=== PATIENT | female | born 1990 | race Caucasian/White ===

== ENCOUNTER 2018-12-01 09:31 | Inpatient (IN) ==
[2018-12-01] MEDS ORDERED: OXYTOCIN 30 UNITS/500 ML BAG IV PRN (09:56)
--- NOTE | 2018-12-01 10:15 | History & Physical Report ---
Date of Service December 01, 2018 Assessment & Plan (1) Post-dates : 28 yo at 40.5 ks, IOL VSS Afebrile GBS negative Cervix unfavorable Plan admit, monitor, labs, PO Cytotec All questions were answered History of Present Illness Chief Complaint: Induction Primary Care Provider: Efe Garcia MD Patient is a 28 yo at 40.5wks, scheduled IOL for postdates No complaints No ctxs/ LOF/VB +FM Her has been uncomplicated GBS negative Allergies Allergy/AdvReac Type Severity Reaction Status Date / Time No Known Allergies Allergy Unverified 12/30/11 11:17 Home Medications Home Medications Medication Instructions Recorded Confirmed Type Cephalexin Monohydrate (Keflex) 500 mg PO QID #0 03/20/07 History Hydrocodone/Acetaminophen 1 tab PO Q4HR PRN #0 03/20/07 History 5MG/500MG (Vicodin 5MG/500MG) Ibuprofen (Advil) 400 mg PO #0 03/20/07 History OXYCODONE/ACETAMINOPHEN 5MG/325MG 1 tab PO Q6HR PRN #20 05/24/08 Rx (PERCOCET 5MG/325MG) Patient History [employer] History no h/o STD's, no GC/ Chlamydia/ HSV Review of Systems All systems reviewed & are unremarkable except as noted in HPI & below Physical Exam Constitutional: WD/WN, vitals as above well nourished Comfortable Genitourinary: Cervix 1 cm/ 50%/ -2, vertex Monitoring External Monitor 130's, not reactive yet, no decels, moderate variability Tocodynamometer No ctxs
[2018-12-01 10:35] LABS: Hematocrit (blood only) 32.8 % (37-47); Mean Platelet Volume 9.6 fL (7.4-10.4); Platelet Count 225 K/uL (130-400); RDW Coefficient of Variation 13.4 % (11.5-14.5); RDW Standard Deviation 40.9 fL (36.4-46.3); Red Blood Count 3.95 M/uL (4.2-5.4); White Blood Count 10.32 K/uL (4.8-10.8)
[2018-12-01 10:36] LABS: Mean Corpuscular Hgb Conc 36.6 g/dL (32-36)
[2018-12-01] MEDS: miSOPROStol 50 MCG TAB PO SCH ×2 (11:04→15:07)
[2018-12-01] MEDS ORDERED: BUTORPHANOL TARTRATE 2 MG/ML VIAL IV PRN (16:30)
--- NOTE | 2018-12-01 16:30 | Obstetrical Progress Note ---
Date of Service December 01, 2018 Subjective Patient is reevaluated She received 2 doses of PO Cytotec She feels mild cramps q 20 min No LOF/VB +FM's FHR categ I Continue to monitor and cervical ripening Results & Data Vital Signs (Past 12 Hours) Vital Signs Temp Pulse Resp BP 12/01/18 15:02 36.9 C 80 20 107/64 12/01/18 12:52 36.9 C 86 20 130/74 12/01/18 10:30 36.8 C 86 18 123/71 12/01/18 10:29 86 123/71
[2018-12-01] MEDS ORDERED: ONDANSETRON INJ 2 MG/ML 2 ML VIAL IV PRN (23:24)
--- NOTE | 2018-12-01 23:24 | Obstetrical Progress Note ---
Date of Service December 01, 2018 Subjective Patient is reevaluated She received 2 doses of PO Cytotec She has been feeling ctxs q 2-3 min and for the last 4 hours, they are getting painful VSS Afebrile VE; 2/ 70%/ -2, tight bulging bag FHR categ I Breaks: ctxs q 2-3 min Patient desires to eat Plan to feed her before active labor starts and continue to monitor PO Cytotec if ctxs would space out Continue to monitor Results & Data Vital Signs (Past 12 Hours) Vital Signs Temp Pulse Resp BP 12/01/18 23:02 36.4 C L 75 18 131/80 12/01/18 19:01 36.7 C 79 18 118/77 12/01/18 15:02 36.9 C 80 20 107/64 12/01/18 12:52 36.9 C 86 20 130/74
[2018-12-02] MEDS: miSOPROStol 50 MCG TAB PO SCH (02:29)
--- NOTE | 2018-12-02 08:13 | Labor Progress Brief Note ---
Date of Service December 02, 2018 Met pt and spouse doing well Induction Day #2 for prolonged gestation Cytotec X3 FHR; CAT1 ctx: 2-5min VE: 3-4/50/-1 w/ bulging membranes Results & Data Vital Signs (Past 12 Hours) Vital Signs Temp Pulse Resp BP 12/02/18 07:28 36.6 C 74 20 128/81 12/02/18 02:29 36.8 C 80 18 138/80 12/01/18 23:02 36.4 C L 75 18 131/80
[2018-12-02] MEDS: LACTATED RINGER'S 1,000 ML IV PRN ×2 (08:59→13:06)
[2018-12-02] MEDS ORDERED: BUPIVACAINE 0.25% 30 ML VIAL ONE (10:46)
[2018-12-02] MEDS ORDERED: fentaNYL citrate 100 MCG/2 ML VIAL ONE (10:46)
[2018-12-02] MEDS ORDERED: ePHEDrine sulfate 50 MG/ML AMP ONE (10:46)
[2018-12-02] MEDS ORDERED: fentaNYL 2MCG/ML ROPIV 1.25MG/ML 100 ML BAG EPI ONE (10:47)
--- NOTE | 2018-12-02 11:11 | Anesthesiology Consultation ---
Date of Service December 02, 2018 Assessment & Plan (1) Encounter for pre-operative examination: Chart Review Chart Review: Acceptable Risk for Labor Epidural History Height/Weight Height: 5 ft 6 in Weight: 105.687 kg Allergies Allergy/AdvReac Type Severity Reaction Status Date / Time No Known Allergies Allergy Unverified 12/30/11 11:17 Medications Active Medications Generic Name Dose Route Start Last Admin Trade Name Freq PRN Reason Stop Dose Admin Butorphanol Tartrate 1 mg 12/01/18 16:30 12/02/18 09:04 Stadol IV 12/31/18 16:29 1 mg Q3HWA PRN Administration Pain Lactated Ringer's 1,000 mls @ 150 mls/hr 12/01/18 09:56 12/02/18 08:59 Lr IV 12/03/18 09:55 150 mls/hr .Q6H40M PRN Administration L&D Protocol Protocol Misoprostol 50 mcg 12/01/18 12:00 12/02/18 02:29 Cytotec PO 12/31/18 11:59 50 mcg Q4 LETITIA Administration Past Medical History Medical History Biceps tendonosis of right shoulder Carpal tunnel syndrome GERD (gastroesophageal reflux disease) [place] teeth extracted Social History Smoking Status: Never smoker Do You Dip or Chew Tobacco: No Hx Alcohol Use: No Hx Substance Use: No substance use type: does not use Physical Exam Vital Signs Last Vital Signs Temp 37.1 C 12/02/18 09:08 Pulse 73 12/02/18 11:06 Resp 20 12/02/18 09:08 BP 128/89 12/02/18 10:57 Pulse Ox 100 12/02/18 11:06
[2018-12-02] MEDS ORDERED: ePHEDrine sulfate 50 MG/ML AMP IV PRN (12:40)
[2018-12-02] MEDS ORDERED: NALOXONE HCL 0.4 MG/1 ML VIAL/CARP IV PRN (12:40)
[2018-12-02] MEDS ORDERED: NALBUPHINE HCL INJ 10 MG/ML AMP IV PRN (12:40)
[2018-12-02] MEDS ORDERED: ONDANSETRON INJ 2 MG/ML 2 ML VIAL IV PRN (12:40)
[2018-12-02] MEDS ORDERED: NALOXONE HCL 1 MG in SODIUM CHLORIDE 0.9% 1000ML 1,000 ML IV PRN (12:40)
[2018-12-02] MEDS ORDERED: fentaNYL 2MCG/ML ROPIV 1.25MG/ML 100 ML BAG EPI PRN (12:40)
[2018-12-02] MEDS ORDERED: DiphenhydrAMINE HCL 50 MG/ML VIAL IV PRN (12:40)
--- NOTE | 2018-12-02 12:45 | Labor Progress Brief Note ---
Date of Service December 02, 2018 Pt doing well Epidural analgesia in place FHR; CAT1 Ctx 2-5mins VE; 5cm/75%/bulging membranes/-1 AROM- clear anticipate VD Results & Data Vital Signs (Past 12 Hours) Vital Signs Temp Pulse Resp BP Pulse Ox 12/02/18 12:41 100 H 98 12/02/18 12:36 80 97 12/02/18 12:31 83 98 12/02/18 12:29 93 H 119/69 12/02/18 12:26 87 99 12/02/18 12:23 96 H 119/74 12/02/18 12:21 87 97 12/02/18 12:20 22 12/02/18 12:18 90 121/77 12/02/18 12:16 93 H 98 12/02/18 12:13 89 129/79 12/02/18 12:11 99 H 99 12/02/18 12:08 94 H 127/68 12/02/18 12:06 92 H 98 12/02/18 12:05 83 18 127/60 12/02/18 12:01 86 97 12/02/18 11:59 85 128/79 12/02/18 11:56 98 H 97 12/02/18 11:52 93 H 133/78 12/02/18 11:51 95 H 98 12/02/18 11:50 94 H 18 125/82 12/02/18 11:48 100 H 125/81 12/02/18 11:46 81 119/75 97 12/02/18 11:45 18 12/02/18 11:44 81 127/86 12/02/18 11:42 89 129/90 12/02/18 11:41 89 98 12/02/18 11:40 82 20 123/81 12/02/18 11:38 88 126/90 12/02/18 11:36 86 129/93 98 12/02/18 11:34 77 130/87 12/02/18 11:32 84 91 12/02/18 11:31 79 98 12/02/18 11:26 84 94 12/02/18 11:21 82 100 12/02/18 11:16 95 H 100 12/02/18 11:11 74 100 12/02/18 11:06 73 100 12/02/18 11:01 72 100 12/02/18 11:00 36.8 C 71 22 128/89 100 12/02/18 10:57 71 128/89 12/02/18 10:56 70 100 12/02/18 09:08 37.1 C 75 20 129/77 12/02/18 07:28 36.6 C 74 20 128/81 12/02/18 02:29 36.8 C 80 18 138/80
[2018-12-02] MEDS ORDERED: OXYTOCIN 20 UNITS in LACTATED RINGER'S 1,000 ML IV SCH ×2 (13:30→20:45)
[2018-12-02] MEDS ORDERED: OXYTOCIN 30 UNITS/500 ML BAG IV PRN ×2 (13:47→21:33)
[2018-12-02] MEDS ORDERED: CALCIUM CARBONATE 500 MG CHEWABLE TAB PO ONE (16:04)
--- NOTE | 2018-12-02 16:06 | Labor Progress Brief Note ---
Date of Service December 02, 2018 doing well AROM FHR : CAT1 Ctx 2-5 Pit; 6Mu VE; 5/75%/-1 Results & Data Vital Signs (Past 12 Hours) Vital Signs Temp Pulse Resp BP Pulse Ox 12/02/18 16:01 95 H 100 12/02/18 16:00 94 H 135/86 12/02/18 15:59 86 124/77 12/02/18 15:56 90 100 12/02/18 15:51 88 100 12/02/18 15:46 89 99 12/02/18 15:43 86 130/79 12/02/18 15:41 90 100 12/02/18 15:36 104 H 99 12/02/18 15:31 95 H 100 12/02/18 15:30 84 130/75 12/02/18 15:29 79 119/67 12/02/18 15:26 81 97 12/02/18 15:21 82 99 12/02/18 15:16 75 99 12/02/18 15:15 82 139/83 12/02/18 15:11 64 100 12/02/18 15:06 87 100 12/02/18 15:01 84 100 12/02/18 14:59 80 134/83 12/02/18 14:56 75 99 12/02/18 14:51 78 100 12/02/18 14:46 95 H 100 12/02/18 14:45 75 111/61 12/02/18 14:44 77 110/68 12/02/18 14:41 67 99 12/02/18 14:36 69 98 12/02/18 14:31 72 99 12/02/18 14:29 70 117/65 12/02/18 14:26 76 99 12/02/18 14:21 78 99 12/02/18 14:16 93 H 100 12/02/18 14:15 85 118/69 12/02/18 14:11 79 100 12/02/18 14:06 96 H 100 12/02/18 14:01 79 99 12/02/18 13:58 79 112/64 12/02/18 13:56 75 96 12/02/18 13:51 67 98 12/02/18 13:50 20 12/02/18 13:46 77 97 12/02/18 13:43 91 H 114/65 12/02/18 13:41 76 99 05 13:36 67 99 05 13:31 78 98 05 13:28 79 110/62 05 13:26 77 100 05 13:21 80 99 05 13:16 84 98 12/02/18 13:14 72 110/64 05 13:11 89 99 05 13:06 99 H 98 12/02/18 13:01 87 98 12/02/18 12:58 74 117/65 12/02/18 12:56 81 97 12/02/18 12:51 84 98 12/02/18 12:50 18 12/02/18 12:46 83 99 05 12:43 80 121/66 12/02/18 12:41 100 H 98 12/02/18 12:36 80 97 12/02/18 12:35 18 12/02/18 12:31 83 98 12/02/18 12:29 93 H 119/69 05 12:26 87 99 12/02/18 12:23 96 H 119/74 05 12:21 87 97 12/02/18 12:20 22 12/02/18 12:18 90 121/77 12/02/18 12:16 93 H 98 12/02/18 12:13 89 129/79 12/02/18 12:11 99 H 99 12/02/18 12:08 94 H 127/68 12/02/18 12:06 92 H 98 12/02/18 12:05 83 18 127/60 05 12:01 86 97 12/02/18 11:59 85 128/79 05 11:56 98 H 97 12/02/18 11:52 93 H 133/78 05 11:51 95 H 98 12/02/18 11:50 94 H 18 125/82 05 11:48 100 H 125/81 05 11:46 81 119/75 97 05 11:45 18 05 11:44 81 127/86 05 11:42 89 129/90 12/02/18 11:41 89 98 12/02/18 11:40 82 20 123/81 12/02/18 11:38 88 126/90 12/02/18 11:36 86 129/93 98 12/02/18 11:34 77 130/87 12/02/18 11:32 84 91 12/02/18 11:31 79 98 12/02/18 11:26 84 94 12/02/18 11:21 82 100 12/02/18 11:16 95 H 100 12/02/18 11:11 74 100 12/02/18 11:06 73 100 12/02/18 11:01 72 100 12/02/18 11:00 36.8 C 71 22 128/89 100 12/02/18 10:57 71 128/89 12/02/18 10:56 70 100 12/02/18 09:08 37.1 C 75 20 129/77 12/02/18 07:28 36.6 C 74 20 128/81
[2018-12-02] MEDS ORDERED: CALCIUM CARBONATE 500 MG CHEWABLE TAB ONE (16:08)
[2018-12-02] MEDS ORDERED: METHYLERGONOVINE MALEATE 0.2 MG/ML AMP ONE (21:25)
[2018-12-02] MEDS ORDERED: SUPERCREAM 0.870% 15 GM JAR EXT PRN (21:33)
[2018-12-02] MEDS ORDERED: METHYLERGONOVINE MALEATE 0.2 MG/ML AMP IM ONE (21:33)
[2018-12-02] MEDS ORDERED: HYDROCORTISONE ACETATE 25 MG SUPP PR PRN (21:33)
[2018-12-02] MEDS ORDERED: miSOPROStol 200 MCG TAB PR ONE (21:33)
[2018-12-02] MEDS ORDERED: BISACODYL 10 MG SUPP PR PRN (21:33)
[2018-12-02] MEDS ORDERED: ACETAMINOPHEN 325 MG TAB PO PRN (21:33)
--- NOTE | 2018-12-02 22:21 | Anesthesia Procedure Note ---
Date of Service December 02, 2018 Anesthesia Post Epidural Note Vital Signs Vital Signs: Temp Pulse Resp BP Pulse Ox 12/02/18 22:14 88 148/84 H 12/02/18 21:59 91 H 133/66 12/02/18 21:47 89 123/73 12/02/18 21:31 85 99 12/02/18 21:28 85 122/70 12/02/18 21:26 88 99 12/02/18 21:23 95 H 121/69 12/02/18 21:21 89 99 12/02/18 21:16 89 99 12/02/18 21:11 93 H 97 12/02/18 21:06 94 H 97 12/02/18 21:01 97 H 96 12/02/18 21:00 93 H 20 85 L 12/02/18 20:59 88 158/72 H 12/02/18 20:56 87 98 12/02/18 20:51 95 H 82 L 12/02/18 20:46 93 H 96 12/02/18 20:45 94 H 18 86 L 12/02/18 20:44 92 H 157/79 H 12/02/18 20:41 111 H 97 12/02/18 20:39 104 H 91 12/02/18 20:36 105 H 100 12/02/18 20:31 81 97 12/02/18 20:30 88 20 88 L 12/02/18 20:29 81 139/69 12/02/18 20:26 87 99 12/02/18 20:23 89 92 12/02/18 20:21 86 98 12/02/18 20:17 96 H 86 L 12/02/18 20:16 94 H 99 12/02/18 20:15 87 18 125/65 12/02/18 20:12 82 92 12/02/18 20:11 88 99 12/02/18 20:06 87 83 L 12/02/18 20:04 87 90 12/02/18 20:01 88 100 12/02/18 20:00 20 12/02/18 19:56 83 99 12/02/18 19:51 74 99 12/02/18 19:46 83 98 12/02/18 19:43 72 118/72 12/02/18 19:41 75 99 12/02/18 19:36 78 100 12/02/18 19:31 78 100 12/02/18 19:30 73 18 119/69 12/02/18 19:26 76 100 12/02/18 19:21 77 100 12/02/18 19:16 76 100 12/02/18 19:14 77 122/79 12/02/18 19:11 79 100 12/02/18 19:10 37.2 C 18 12/02/18 19:06 80 100 12/02/18 19:01 80 100 12/02/18 18:58 90 129/77 12/02/18 18:56 85 100 12/02/18 18:51 82 100 12/02/18 18:50 20 12/02/18 18:46 77 100 12/02/18 18:44 81 122/61 12/02/18 18:41 84 100 12/02/18 18:36 85 100 12/02/18 18:31 91 H 99 12/02/18 18:30 37.0 C 97 H 20 126/63 12/02/18 18:26 99 H 99 12/02/18 18:21 117 H 99 12/02/18 18:16 88 99 12/02/18 18:14 78 133/80 12/02/18 18:11 82 99 12/02/18 18:06 82 100 12/02/18 18:01 87 99 12/02/18 18:00 20 12/02/18 17:56 87 100 12/02/18 17:51 85 99 12/02/18 17:46 90 100 12/02/18 17:43 94 H 141/78 H 12/02/18 17:41 88 99 12/02/18 17:36 92 H 98 12/02/18 17:31 85 139/67 99 12/02/18 17:30 20 12/02/18 17:29 88 134/79 12/02/18 17:26 97 H 100 12/02/18 17:21 91 H 99 12/02/18 17:16 93 H 98 12/02/18 17:13 93 H 132/82 12/02/18 17:11 83 98 12/02/18 17:06 103 H 98 12/02/18 17:01 87 98 12/02/18 17:00 20 12/02/18 16:58 90 133/83 12/02/18 16:56 87 98 12/02/18 16:54 82 127/78 12/02/18 16:53 37.1 C 83 18 127/78 99 12/02/18 16:51 90 97 12/02/18 16:50 18 12/02/18 16:46 84 97 12/02/18 16:43 83 125/74 12/02/18 16:41 84 97 12/02/18 16:36 87 96 12/02/18 16:31 86 97 12/02/18 16:29 80 127/77 05 16:26 89 97 12/02/18 16:21 83 98 12/02/18 16:16 85 98 12/02/18 16:14 100 H 128/88 12/02/18 16:11 90 99 12/02/18 16:06 85 99 12/02/18 16:01 95 H 100 12/02/18 16:00 94 H 135/86 12/02/18 15:59 86 124/77 12/02/18 15:56 90 100 12/02/18 15:51 88 100 12/02/18 15:50 20 12/02/18 15:46 89 99 05 15:43 86 130/79 05 15:41 90 100 12/02/18 15:36 104 H 99 12/02/18 15:31 95 H 100 12/02/18 15:30 84 130/75 05 15:29 79 119/67 12/02/18 15:26 81 97 12/02/18 15:21 82 99 12/02/18 15:16 75 99 12/02/18 15:15 82 139/83 12/02/18 15:11 64 100 12/02/18 15:06 87 100 12/02/18 15:01 84 100 12/02/18 14:59 37.2 C 80 18 134/83 100 05 14:56 75 99 05 14:51 78 100 05 14:50 20 12/02/18 14:46 95 H 100 12/02/18 14:45 75 111/61 05 14:44 77 110/68 05 14:41 67 99 12/02/18 14:36 69 98 12/02/18 14:31 72 99 05 14:29 70 117/65 05 14:26 76 99 05 14:21 78 99 05 14:16 93 H 100 05 14:15 85 118/69 05 14:11 79 100 05 14:06 96 H 100 12/02/18 14:01 79 99 05 13:58 79 112/64 05 13:56 75 96 05 13:51 67 98 05 13:50 20 05 13:46 77 97 05 13:43 91 H 114/65 05 13:41 76 99 05 13:36 67 99 05 13:31 78 98 05 13:28 79 110/62 05 13:26 77 100 05 13:21 80 99 05 13:16 84 98 05 13:14 72 110/64 05 13:11 89 99 05 13:06 99 H 98 12/02/18 13:01 87 98 05 12:58 74 117/65 05 12:56 81 97 05 12:51 84 98 12/02/18 12:50 18 12/02/18 12:46 83 99 05 12:43 80 121/66 05 12:41 100 H 98 12/02/18 12:36 80 97 05 12:35 18 12/02/18 12:31 83 98 05 12:29 93 H 119/69 05 12:26 87 99 05 12:23 96 H 119/74 05 12:21 87 97 05 12:20 22 05 12:18 90 121/77 05 12:16 93 H 98 05 12:13 89 129/79 05 12:11 99 H 99 05 12:08 94 H 127/68 05 12:06 92 H 98 05//19 12:05 83 18 127/60 12/02/18 12:01 86 97 12/02/18 11:59 85 128/79 12/02/18 11:56 98 H 97 12/02/18 11:52 93 H 133/78 12/02/18 11:51 95 H 98 12/02/18 11:50 94 H 18 125/82 12/02/18 11:48 100 H 125/81 12/02/18 11:46 81 119/75 97 12/02/18 11:45 18 12/02/18 11:44 81 127/86 12/02/18 11:42 89 129/90 12/02/18 11:41 89 98 12/02/18 11:40 82 20 123/81 12/02/18 11:38 88 126/90 12/02/18 11:36 86 129/93 98 12/02/18 11:34 77 130/87 12/02/18 11:32 84 91 12/02/18 11:31 79 98 12/02/18 11:26 84 94 12/02/18 11:21 82 100 12/02/18 11:16 95 H 100 12/02/18 11:11 74 100 12/02/18 11:06 73 100 12/02/18 11:01 72 100 12/02/18 11:00 36.8 C 71 22 128/89 100 12/02/18 10:57 71 128/89 12/02/18 10:56 70 100 12/02/18 09:08 37.1 C 75 20 129/77 12/02/18 07:28 36.6 C 74 20 128/81 12/02/18 02:29 36.8 C 80 18 138/80 12/01/18 23:02 36.4 C L 75 18 131/80 Pain Intensity Abdomen: Pain Intensity: 4 Notes Mental Status: alert / awake / arousable and participated in evaluation Nausea / Vomiting: adequately controlled Pain: adequately controlled Airway Patency, RR, SpO2: stable & adequate BP & HR: stable & adequate Hydration State: stable & adequate Neuraxial Anesthesia: was administered and sensory block is resolving Anesthetic Complications: no major complications apparent and Pt Satisfied with anesthetic care Epidural: Removed without complications and With tip intact
[2018-12-03] MEDS: BENZOCAINE 20% AER SPR 82.5 GM CAN EXT PRN (00:08)
[2018-12-03] MEDS: IBUPROFEN 600 MG TAB PO PRN ×3 (01:13→20:35)
[2018-12-03 06:30] LABS: Hematocrit (blood only) 32.1 % (37-47); Hemoglobin 11.1 g/dL (12.0-16.0); Mean Corpuscular Hgb Conc 34.6 g/dL (32-36); Mean Corpuscular Volume 85.1 fL (80-100); Mean Platelet Volume 9.9 fL (7.4-10.4); Platelet Count 208 K/uL (130-400); RDW Coefficient of Variation 13.4 % (11.5-14.5); RDW Standard Deviation 41.9 fL (36.4-46.3); Red Blood Count 3.77 M/uL (4.2-5.4); White Blood Count 16.04 K/uL (4.8-10.8)
[2018-12-03] MEDS ORDERED: DIPHTHERIA/TETANUS/PERTUSSIS 0.5 ML SYR/VIAL IM ONE (09:00)
[2018-12-03] MEDS: DOCUSATE SODIUM 100 MG CAP PO SCH ×2 (09:07→20:33)
[2018-12-03] MEDS: PRENATAL VITAMIN 1 TAB PO SCH (09:07)
[2018-12-03] MEDS: FERROUS SULFATE 325 MG TAB PO SCH (09:07)
--- NOTE | 2018-12-03 09:07 | Obstetrical Progress Note ---
Date of Service December 03, 2018 Assessment & Plan (1) normal course: PPD #1 Pt doing well anticipate disch tomorrow Subjective Ambulation: ambulating normally Voiding: no voiding problems Passing Gas:: Yes Diet Tolerance:: regular diet Lochia:: Small Feeding Type:: breast feeding Review of Systems All systems reviewed & are unremarkable except as noted in HPI & below Physical Exam Vital Signs (Past 24 Hours) Last Vital Signs Temp 36.9 C 12/03/18 07:30 Pulse 83 12/03/18 07:30 Resp 16 12/03/18 07:30 BP 130/84 12/03/18 07:30 Pulse Ox 98 12/03/18 04:30 Constitutional WD/WN, vitals as above well developed and well nourished Eyes PERRL, conjunctivae normal, anicteric sclerae Neck trachea midline, no thyromegaly Respiratory normal respiratory effort, lungs clear to auscultation Auscultation: no crackles, no rales and no wheezes Cardiovascular RRR, no murmur, no edema Gastrointestinal (Abdomen) normal bowel sounds, soft, nontender, no hepatosplenomegaly Uterus is below umbilicus Musculoskeletal no cyanosis or clubbing, extremities motor strength 5/5 Skin no rashes, warm and dry Neurologic patellar DTR's 2+ bilat, sensation intact Psychiatric A+Ox3, euthymic affect Genitourinary normal external appearance
[2018-12-03] MEDS ORDERED: BISACODYL 5 MG TABEC PO SCH (20:00)
--- NOTE | 2018-12-04 04:20 | Obstetrical Progress Note ---
Date of Service December 04, 2018 Assessment & Plan (1) normal course: PPD #2 Pt doing well anticipate disch today Supervising Physician Co-Signing Physician Notes Robina Phillips MD Subjective Pt feeling well. No problems. Review of Systems Review of Systems: All systems reviewed & are unremarkable except as noted in HPI & below Physical Exam Constitutional: WD/WN, vitals as above well developed and well nourished Eyes: PERRL, conjunctivae normal, anicteric sclerae Neck: trachea midline, no thyromegaly Respiratory: normal respiratory effort, lungs clear to auscultation Auscultation: no crackles, no rales and no wheezes Cardiovascular: RRR, no murmur, no edema Gastrointestinal (Abdomen): normal bowel sounds, soft, nontender, no hepatosplenomegaly Musculoskeletal: no cyanosis or clubbing, extremities motor strength 5/5 Skin: no rashes, warm and dry Neurologic: patellar DTR's 2+ bilat, sensation intact Psychiatric: A+Ox3, euthymic affect Genitourinary: normal external appearance Results & Data Vital Signs (Past 12 Hours) Vital Signs Temp Pulse Resp BP Pulse Ox 12/03/18 23:50 36.5 C 76 16 120/71 97 12/03/18 19:30 36.5 C 81 18 130/80 12/03/18 16:25 36.4 C L 76 18 116/74
--- NOTE | 2018-12-04 04:23 | Discharge Summary ---
Date of Service December 04, 2018 Admission HPI Per Admitting Provider Patient is a 28 yo at 40.5wks, scheduled IOL for postdates No complaints No ctxs/ LOF/VB +FM Her has been uncomplicated GBS negative Admission Exam (Per Admitting) Constitutional WD/WN, vitals as above well developed and well nourished Eyes PERRL, conjunctivae normal, anicteric sclerae Neck trachea midline, no thyromegaly Respiratory normal respiratory effort, lungs clear to auscultation Auscultation: no crackles, no rales and no wheezes Cardiovascular RRR, no murmur, no edema Gastrointestinal (Abdomen) normal bowel sounds, soft, nontender, no hepatosplenomegaly Musculoskeletal no cyanosis or clubbing, extremities motor strength 5/5 Skin no rashes, warm and dry Neurologic patellar DTR's 2+ bilat, sensation intact Psychiatric A+Ox3, euthymic affect Genitourinary normal external appearance Discharge Data Consultations 12/01/18 09:56 Consult Anesthesiology Stat Hospital Course (1) normal course: Pt had spontaneous vaginal delivery Supervising Physician Co-Signing Physician Notes Robina Phillips MD
[2018-12-04] MEDS: IBUPROFEN 600 MG TAB PO PRN (06:21)
[2018-12-04 07:50] LABS: Hematocrit (blood only) 31.8 % (37-47); Hemoglobin 11.1 g/dL (12.0-16.0)
[2018-12-04] MEDS ORDERED: MEASLES, MUMPS & RUBELLA VIRUS VIAL SQ ONE (09:11)
[2018-12-04] MEDS: BENZOCAINE 20% AER SPR 82.5 GM CAN EXT PRN (09:29)
[2018-12-04] MEDS: PRENATAL VITAMIN 1 TAB PO SCH (09:30)
[2018-12-04] MEDS: FERROUS SULFATE 325 MG TAB PO SCH (09:30)
[2018-12-04] MEDS: DOCUSATE SODIUM 100 MG CAP PO SCH (09:30)
--- NOTE | 2018-12-06 08:04 | Delivery Summary ---
DATE OF OPERATION: 12/02/2018 The patient delivered a live born infant in left occiput anterior presentation. There was body cord which was easily reduced. Infant was delivered and was found to have terminal meconium. Cord was clamped and cut. Infant was handed over to the waiting pediatric team. Infant's weight and Apgars is in the pediatric record. Inspection of the placenta showed normal grossly looking placenta after it was spontaneously delivered with a 3-vessel cord. Inspection of the perineum showed second degree midline episiotomy which was repaired in layers with 2-0 Vicryl. Rectal exam post repair shows good sphincter tone. No sutures are palpated in the rectum. Estimated blood loss was 700 mL. Infant and mother are doing well in recovery. There was good hemostasis. All instruments were removed from the vagina and accounted for x2 including sponges and retractors and needles. I attest to the content of the Intraoperative Record and any orders documented therein. Any exception s are noted below.
== END 2018-12-04 12:50 | disposition home or self-care (01) | DRG 807 ==
LOC: 4S1 09:31 → 4S2 12-03

== ENCOUNTER 2021-05-06 07:32 | Inpatient (IN) ==
[2021-05-06] MEDS ORDERED: FLUARIX QUADRIVALENT 0.5 ML SYR IM ONE (07:44)
[2021-05-06] MEDS ORDERED: OXYTOCIN 30 UNITS/500 ML BAG IV PRN ×2 (08:01→08:43)
[2021-05-06] MEDS: LACTATED RINGER'S 1,000 ML IV PRN ×2 (08:47→13:54)
[2021-05-06 08:49] LABS: Hematocrit (blood only) 33.8 % (37-47); Hemoglobin 11.3 g/dL (12.0-16.0); Mean Corpuscular Hgb Conc 33.4 g/dL (32-36); Mean Corpuscular Volume 83.9 fL (80-100); Mean Platelet Volume 9.8 fL (7.4-10.4); Platelet Count 262 K/uL (130-400); RDW Coefficient of Variation 14.4 % (11.5-14.5); RDW Standard Deviation 44.5 fL (36.4-46.3); Red Blood Count 4.03 M/uL (4.2-5.4); White Blood Count 12.39 K/uL (4.8-10.8)
--- NOTE | 2021-05-06 12:04 | Labor Progress Brief Note ---
Date of Service May 06, 2021 Subjective Induction ongoing. Pitocin running. No request for epidural yet. Assessment & Plan Admission and Anticipated Discharge Date Admission Date: May 06, 2021 Physical Exam Genitourinary: FHT Cat 1 [place] not well traced due to maternal positioning. /-2, AROM clear with a bloody mucus plug also passed at this time. Results & Data ([facility]) Vital Signs (Past 12 Hours) Vital Signs Temp Pulse Resp BP 05/06/21 11:47 91 H 129/87 05/06/21 11:30 98.4 F 18 05/06/21 11:00 18 05/06/21 10:44 90 110/59 L 05/06/21 10:30 18 05/06/21 10:09 100 H 125/76 05/06/21 09:59 18 05/06/21 09:30 18 05/06/21 09:09 94 H 133/76 05/06/21 09:00 18 05/06/21 08:11 98.1 F 18 05/06/21 08:04 102 H 142/79 H 05/06/21 07:52 98.1 F 18 05/06/21 07:48 106 H 169/86 H Coding Level of Care Code None
[2021-05-06] MEDS ORDERED: SODIUM CHLORIDE 0.9% INJ 10 ML VIAL ONE (13:33)
[2021-05-06] MEDS ORDERED: BUPIVACAINE 0.25% 30 ML VIAL ONE (13:33)
[2021-05-06] MEDS ORDERED: ePHEDrine sulfate 50 MG/ML AMP ONE (13:33)
[2021-05-06] MEDS ORDERED: fentaNYL citrate 100 MCG/2 ML VIAL ONE (13:34)
[2021-05-06] MEDS ORDERED: fentaNYL 2MCG/ML ROPIVACAINE 1.25MG/ML 100 ML BAG EPI ONE (13:34)
--- NOTE | 2021-05-06 13:47 | Anesthesiology Consultation ---
Date of Service May 06, 2021 Assessment & Plan (1) Encounter for pre-operative examination: Chart Review Chart Review: Acceptable Risk for Labor Epidural Consults Requested none ASA ASA2 Proposed Anesthesia Anesthesia Type: Labor Epidural Risk / Benefits Reviewed With: PT / POA / Parent / Guardian, Accepts Plan and Informed Consent Obtained History Height/Weight Height: 5 ft 7 in Weight: 254 kg Allergies Allergy/AdvReac Type Severity Reaction Status Date / Time No Known Allergies Allergy Verified 05/05/21 11:13 Medications Home Medications Medication Instructions Recorded Confirmed Last Taken vitamin no.138-folic acid 800 tab PO DAILY 02/17/21 05/05/21 05/05/21 400 mcg-dha 25 mg chewable tablet (Alive ) Active Medications Generic Name Dose Route Start Last Admin Trade Name Freq PRN Reason Stop Dose Admin Lactated Ringer's 1,000 mls @ 125 mls/hr 05/06/21 08:01 05/06/21 08:47 Lr IV 05/08/21 08:00 125 mls/hr .Q8H PRN Administration L&D Protocol Protocol Oxytocin 30 units in 500 mls @ 9 mls/hr 05/06/21 08:43 05/06/21 13:14 Pitocin IV 05/08/21 08:42 0.54 units/hr .Q24H PRN 9 mls/hr Labor Induction/Augmentation Titration Protocol 0.54 UNITS/HR Past Medical History Medical History Biceps tendonosis of right shoulder Carpal tunnel syndrome Common migraine without aura Encounter for pre-operative examination GERD (gastroesophageal reflux disease) Post-dates normal course Exercise / Class Metabolic Activity II 4-5 Yardwork/Stairs/Walk up hill Past Family History Family History Father Hypertension Mother Asthma Grandfather (Paternal) Colorectal cancer Denies family history of Ovarian cancer Prostate cancer Myocardial infarction Breast cancer Past Surgical History Surgical History History of shoulder surgery [place] teeth extracted Past Anesthesia History No Hx of Anesthesia Complications and No Family Hx of Anesthesia Complications History of PONV No Hx of PONV and No Hx of Motion Sickness Social History Smoking Status: Never smoker Hx Alcohol Use: No Hx Substance Use: No substance use type: does not use Physical Exam Vital Signs Last Vital Signs Temp 97.9 F 05/06/21 13:00 Pulse 90 05/06/21 13:40 Resp 18 05/06/21 13:00 BP 124/68 05/06/21 12:37 Pulse Ox 100 05/06/21 13:40 ENMT Mouth: no dentition abnormality Thyromental Distance: > or= 3.5 Finger Breadths Mallampati Class: II Neck normal visual inspection Respiratory normal respiratory effort Auscultation: lungs clear to auscultation bilaterally Cardiovascular Rate/Rhythm: regular rate and regular rhythm Testing Laboratory Results 05/06/21 08:40
[2021-05-06] MEDS ORDERED: NALOXONE HCL 1 MG in SODIUM CHLORIDE 0.9% 1000ML 1,000 ML IV PRN (14:04)
[2021-05-06] MEDS ORDERED: ONDANSETRON INJ 2 MG/ML 2 ML VIAL IV PRN (14:04)
[2021-05-06] MEDS ORDERED: diphenhydrAMINE 50 MG/ML VIAL IV PRN (14:04)
[2021-05-06] MEDS ORDERED: fentaNYL 2MCG/ML ROPIVACAINE 1.25MG/ML 100 ML BAG EPI PRN (14:04)
[2021-05-06] MEDS ORDERED: ePHEDrine sulfate 50 MG/ML AMP IV PRN (14:04)
[2021-05-06] MEDS ORDERED: NALBUPHINE HCL INJ 10 MG/ML AMP IV PRN (14:04)
[2021-05-06] MEDS ORDERED: NALOXONE HCL 0.4 MG/1 ML VIAL/CARP IV PRN (14:04)
--- NOTE | 2021-05-06 16:11 | Communication Note ---
Date of Service: May 06, 2021 Comfortable with epidural; resting R lateral due to prior R hot spot, now improved Melissa Q3-4 Pit @ 13 FHT Cat 1 Cervix deferred; not likely significantly changed from recent RN exam given patient comfort Continue Pit, Epidural, already ruptured Anticipate
--- NOTE | 2021-05-06 18:19 | Delivery Summary ---
Vaginal Delivery Summary Date of Service May 06, 2021 Vaginal Delivery Summary DIAGNOSES: 1. Gay intrauterine at 40w1d gestation. 2. Induction of Labor. 3. Group B Streptococcus Neg. PROCEDURE: Spontaneous vaginal delivery and repair of 2nd degree laceration. SURGEON: Cate Alexis MD. HAIR SPECIALIST: None. ESTIMATED BLOOD LOSS: 350 mL. COMPLICATIONS: None. PLACENTA: Spontaneous and intact with a 3-vessel cord. DISPOSITION: Stable to labor and delivery. DESCRIPTION: The patient pushed well and brought the head to in DOA position. The 's head was allowed to deliver with contraction force and no further active pushing, with the perineum protected during this time. There was no nuchal cord. The left shoulder was anterior. The shoulders and body delivered without any difficulty, and the infant was placed on the maternal abdomen. It was vigorous and moving all extremities, and making respiratory efforts. The cord was doubly clamped by the MD and then cut by the FOB. The placenta delivered spontaneously and was noted to be intact and with a 3VC. The cervix, vagina and perineum were examined and were found to have separation of the prior episiotomy scar, which was relatively superficial but did comprise a second degree laceration. This was repaired using 3-0 vicryl in the usual manner, but did not require a crown suture as it barely involved the posterior vagina, and mostly represented a separation of the relatively non-elastic scar in the skin of the perineum. The fundus was firm and lochia minimal immediately after delivery. [facility] Vaginal Delivery Charge Vaginal Delivery Codes: 13742 global code for the antepartum, delivery, and post-
[2021-05-06] MEDS ORDERED: BENZOCAINE 20% AER SPR 82.5 GM CAN EXT PRN (18:24)
[2021-05-06] MEDS ORDERED: HYDROCORTISONE ACETATE 25 MG SUPP PR PRN (18:24)
[2021-05-06] MEDS ORDERED: DIPHTHERIA/TETANUS/PERTUSSIS 0.5 ML SYR/VIAL IM ONE (18:24)
[2021-05-06] MEDS ORDERED: oxyCODONE/ACETAMINOPHEN 5mg/325mg TAB PO PRN (18:24)
[2021-05-06] MEDS ORDERED: SUPERCREAM 0.870% 15 GM JAR EXT PRN (18:24)
[2021-05-06] MEDS ORDERED: ACETAMINOPHEN 325 MG TAB PO PRN (18:24)
--- NOTE | 2021-05-06 20:17 | Anesthesia Procedure Note ---
Date of Service May 06, 2021 Anesthesia Post Epidural Note Vital Signs Vital Signs: Temp Pulse Resp BP Pulse Ox 97.5 F L 95 H 18 130/84 99 05/06/21 19:02 05/06/21 20:14 05/06/21 19:45 05/06/21 20:14 05/06/21 18:15 Pain Intensity Abdomen: Pain Intensity: 5 Notes Mental Status: alert / awake / arousable and participated in evaluation Nausea / Vomiting: adequately controlled Pain: adequately controlled Airway Patency, RR, SpO2: stable & adequate BP & HR: stable & adequate Hydration State: stable & adequate Neuraxial Anesthesia: was administered and sensory block is resolving Anesthetic Complications: no major complications apparent and Pt Satisfied with anesthetic care Epidural: Removed without complications and With tip intact
[2021-05-06] MEDS: DOCUSATE SODIUM 100 MG CAP PO SCH (21:04)
[2021-05-06] MEDS: IBUPROFEN 600 MG TAB PO PRN (21:16)
[2021-05-07] MEDS: IBUPROFEN 600 MG TAB PO PRN ×2 (05:15→16:44)
--- NOTE | 2021-05-07 06:10 | Obstetrical Progress Note ---
Date of Service <Ella LoganDO - Last Filed: 05/07/21 06:42> May 07, 2021 Assessment & Plan <Ellapricila Ford DO - Last Filed: 05/07/21 06:42> (1) care and examination: 31 yo day1 from [facility] , doing well. -Continue routine post care. -vital signs reviewed and WNL (Tmax 36.4) -Blood Type O+, GBS-, Rubella immune -Encourage ambulation, monitor and control pain with Motrin, tylenol PRN, resume regular diet, monitor lochia -encourage breast feeding -hemoglobin 11.3 Day #:: 1 <Cate Alexis MD - Last Filed: 05/07/21 07:19> (1) care and examination: Subjective <Ella LoganDO - Last Filed: 05/07/21 06:42> Ambulation: ambulating normally Voiding: no voiding problems Passing Gas:: Yes Diet Tolerance:: regular diet Lochia:: Small Feeding Type:: breast feeding Current Pain Level(1-10): 3 Review of Systems Denies fever, chills, sweats Denies shortness of breath, difficulty breathing, chest pain, palpitations, chest pressure. Denies breast pain. Denies dysuria. Denies headache or changes in vision. Physical Exam <Ellapricila Ford DO - Last Filed: 05/07/21 06:42> General: Alert, oriented. No acute distress. Cardiac: Regular rate and rhythm, no murmurs/rubs/gallops. Respiratory: Clear to auscultation bilaterally a/p, no wheezes/rales/rhonchi. No increased work of breathing. Symmetrical chest rise. No respiratory distress. Abdomen: Soft, nontender, nondistended. Bowel sounds present. Uterus: Uterine fundus firm, palpable at the level of umbilicus. Lower Extremities: No lower extremity edema or swelling. No deep calf pain. Giovana's negative bilaterally.. Results & Data ([facility]) <Ellapricila Ford DO - Last Filed: 05/07/21 06:42> Vital Signs (Past 12 Hours) Vital Signs Temp Pulse Pulse Resp BP BP Pulse Ox 05/07/21 05:00 36.4 C L 101 H 18 137/80 05/06/21 23:15 36.7 C 90 18 140/83 05/06/21 21:10 36.5 C 93 H 18 130/89 05/06/21 20:17 86 131/66 05/06/21 20:15 18 05/06/21 20:14 95 H 130/84 05/06/21 20:04 98 H 127/76 05/06/21 19:45 18 05/06/21 19:44 102 H 138/71 05/06/21 19:24 93 H 124/61 05/06/21 19:21 85 136/80 05/06/21 19:15 18 05/06/21 19:03 91 H 146/77 H 05/06/21 19:02 36.4 C L 18 05/06/21 18:54 91 H 146/76 H 05/06/21 18:45 18 05/06/21 18:44 129/78 05/06/21 18:34 95 H 141/76 H 05/06/21 18:24 173 H 117/75 05/06/21 18:15 96 H 99 05/06/21 18:14 93 H 120/58 L 05/06/21 18:10 100 H 98 <Cate Aleixs MD - Last Filed: 05/07/21 07:19> Co-Signing Physician Notes Resident Physician Supervision Note: I interviewed and examined the patient. Discussed with Dr. Ford and agree with findings and plan as documented in the note. Any exceptions or clarifications are listed here: A single systolic BP of 140 was recorded this morning; otherwise, all below HTN range since delivery was completed. Patient denies ALEXANDER, RUQ pain, vision change or edema when I see her this morning personally. Low suspicion of pp preE at this time, but will be watching BP today. If no further concerns, OK to go home at 24 hours and will prep discharge, instructions reviewed with patient in case she is eligible to go home, which she desires to do. Documented By: Cate Alexis MD, FACOG Resident Activity Tracking <Ella Ford DO - Last Filed: 05/07/21 06:42> Resident Involvement: Resident Care Provided Care Provided: OB Delivery
[2021-05-07 06:12] LABS: Hematocrit (blood only) 32.4 % (37-47); Hemoglobin 10.9 g/dL (12.0-16.0); Mean Corpuscular Hemoglobin 28.2 pg (25-34); Mean Corpuscular Hgb Conc 33.6 g/dL (32-36); Mean Corpuscular Volume 83.7 fL (80-100); Mean Platelet Volume 9.9 fL (7.4-10.4); Platelet Count 229 K/uL (130-400); RDW Coefficient of Variation 14.3 % (11.5-14.5); RDW Standard Deviation 43.4 fL (36.4-46.3); Red Blood Count 3.87 M/uL (4.2-5.4); White Blood Count 14.62 K/uL (4.8-10.8)
[2021-05-07] MEDS ORDERED: PRENATAL VITAMIN 1 TAB PO SCH (08:00)
[2021-05-07] MEDS: DOCUSATE SODIUM 100 MG CAP PO SCH (08:19)
[2021-05-07] MEDS ORDERED: FLUARIX QUADRIVALENT 0.5 ML SYR IM ONE (14:00)
== END 2021-05-07 19:27 | disposition home or self-care (01) | DRG 807 ==
LOC: 4S1 07:32 → 4S2 20:45